=== PATIENT | female | born 1935 | race Caucasian/White ===

== ENCOUNTER 2022-12-31 19:31 | Inpatient (IN) ==
[2022-12-31] MEDS ORDERED: Magnesium Sulfate 2 gm BAG 2 GM/50 ML BAG IVPB ONE (20:06)
[2022-12-31] MEDS ORDERED: Potassium Chlor 20 meq TAB.ER PO ONE (20:07)
[2022-12-31] MEDS ORDERED: Heparin DRIP 25,000 UNITS BAG 25,000 UNITS/500 ML BAG IV SCH (20:15)
[2022-12-31 20:17] LABS: ABS Basophils 0.1 10^3/uL (0.0-0.1); ABS Eosinophils 0.1 10^3/uL (0.0-0.5); ABS Lymphocytes 2.7 10^3/uL (1.0-4.8); ABS Monocytes 0.5 10^3/uL (0.0-0.9); ABS Neutrophils 3.6 10^3/uL (1.5-7.6); ABS Nucleated RBC 0.01 10^3/ul; Hematocrit 38.8 % (35-45); Hemoglobin 13.2 g/dL (11.5-14.3); Lymphocyte % 38.1 %; Mean Corpuscular Hemoglobin 28.3 pg (27-33); Mean Corpuscular Hgb Conc 33.9 g/dL (31-36); Mean Corpuscular Volume 83.5 fL (80-97); Mean Platelet Volume 8.1 fL (7.5-11.2); Nucleated Red Blood Cells % 0.1 /100 WBC (0.0-0.4); Platelet Count 251 10^3/uL (150-450); Red Blood Count 4.65 10^6/uL (3.63-4.92); Red Cell Distribution Width 14.7 % (12-17)
[2022-12-31] MEDS ORDERED: Heparin DRIP 25,000 UNITS BAG 25,000 UNITS/500 ML BAG ONE (20:18)
[2022-12-31 20:26] LABS: INR 1.15 (0.88-1.18)
[2022-12-31 20:55] LABS: Albumin 3.7 g/dL (3.2-5.2); Calcium 8.3 mg/dL (8.6-10.3); Magnesium 1.7 mg/dL (1.9-2.7); Potassium 3.6 mmol/L (3.5-5.0); Total Bilirubin 0.7 mg/dL (0.2-1.0)
[2022-12-31 21:01] LABS: Albumin/Globulin Ratio 1.7 (1-3); CRP High Sensitivity 2.27 mg/L (<2.00); Creatinine, Serum 0.81 mg/dL (0.51-0.95); Globulin 2.2 g/dL (2-4); Total Protein 5.9 g/dL (6.4-8.9); eGFR CKD-EPI 69.3 (>60)
[2022-12-31] MEDS: Acetaminophen IV 1 GM/100ML 1,000 MG/100 ML BAG IV PRN (21:09)
[2022-12-31 21:20] LABS: Activated Partial Thrombo Time 283.7 seconds (26.0-38.0)
[2022-12-31 21:28] LABS: Erythrocyte Sed Rate 6 mm/Hr (0-29)
[2022-12-31 21:49] LABS: High Sensitivity Troponin 1 Hr 131 pg/mL (<15)
[2022-12-31] MEDS: Ondansetron 4 mg VIAL 2 MG/ML 2 ml VIAL IV PRN (21:50)
[2022-12-31 22:11] LABS: Creatinine, Serum 0.78 mg/dL (0.51-0.95); eGFR CKD-EPI 72.6 (>60)
[2023-01-01 00:27] LABS: Free T4 1.23 ng/dL (0.61-1.12); TSH Ultra Thyroid Stim Horm 2.77 mcIU/mL (0.34-5.60)
[2023-01-01 04:50] LABS: Albumin 3.3 g/dL (3.2-5.2); Albumin/Globulin Ratio 1.7 (1-3); Calcium 8.7 mg/dL (8.6-10.3); Creatinine, Serum 0.79 mg/dL (0.51-0.95); Globulin 1.9 g/dL (2-4); HDL Cholesterol 51.1 mg/dL; Magnesium 2.1 mg/dL (1.9-2.7); Potassium 4.9 mmol/L (3.5-5.0); Total Bilirubin 0.5 mg/dL (0.2-1.0); Total Protein 5.2 g/dL (6.4-8.9); eGFR CKD-EPI 71.5 (>60)
[2023-01-01 08:21] LABS: Activated Partial Thrombo Time 28.5 seconds (26.0-38.0); INR 1.03 (0.88-1.18)
[2023-01-01] MEDS ORDERED: Midazolam 10 mg/10 ml VIAL 1 mg/ml 10 ml VIAL (10 mg) IV SLOW PU ONE (12:29)
[2023-01-01] MEDS ORDERED: fentaNYL 100 mcg/2 ml 50 MCG/ML VIAL IV SLOW PU ONE (12:29)
[2023-01-01] MEDS ORDERED: ceFAZolin 2 GM PREMIX 2 GM/50 ML BAG IVPB ONE (13:00)
[2023-01-02] MEDS ORDERED: NS 0.9% 1000 ml BAG 1,000 ML IV SCH (02:00)
[2023-01-02 04:31] LABS: ABS Basophils 0.1 10^3/uL (0.0-0.1); ABS Eosinophils 0.3 10^3/uL (0.0-0.5); ABS Lymphocytes 1.9 10^3/uL (1.0-4.8); ABS Monocytes 0.5 10^3/uL (0.0-0.9); ABS Neutrophils 3.8 10^3/uL (1.5-7.6); Eosinophil % 3.9 %; Hematocrit 33.5 % (35-45); Hemoglobin 11.4 g/dL (11.5-14.3); Lymphocyte % 28.6 %; Mean Corpuscular Hemoglobin 28.2 pg (27-33); Mean Corpuscular Hgb Conc 34.1 g/dL (31-36); Mean Corpuscular Volume 82.7 fL (80-97); Platelet Count 220 10^3/uL (150-450); Red Blood Count 4.04 10^6/uL (3.63-4.92); Red Cell Distribution Width 15.1 % (12-17); White Blood Count 6.5 10^3/uL (3.8-11.8)
[2023-01-02 05:08] LABS: Albumin 3.3 g/dL (3.2-5.2); Albumin/Globulin Ratio 1.7 (1-3); Calcium 8.8 mg/dL (8.6-10.3); Creatinine, Serum 0.84 mg/dL (0.51-0.95); Globulin 1.9 g/dL (2-4); Potassium 4.7 mmol/L (3.5-5.0); Total Bilirubin 0.5 mg/dL (0.2-1.0); Total Protein 5.2 g/dL (6.4-8.9); eGFR CKD-EPI 66.4 (>60)
[2023-01-02] MEDS ORDERED: fentaNYL 100 mcg/2 ml 50 MCG/ML VIAL ONE (06:43)
[2023-01-02] MEDS ORDERED: Lidocaine 1% VIAL 10 MG/ML VIAL 30 ML ONE (06:43)
[2023-01-02] MEDS ORDERED: Midazolam 5 mg/5 ml VIAL 1 mg/ml 5 ml VIAL (5 mg) ONE (06:43)
[2023-01-02] MEDS ORDERED: Iohexol 300 (CONTRAST) 10 ML SDV ONE (06:44)
[2023-01-02] MEDS ORDERED: Flumazenil 0.5 mg/5 ml 0.1 MG/ML 5 ml VIAL ONE (07:19)
[2023-01-02] MEDS ORDERED: Metoprolol Tartrate 5 mg VIAL 5 ml VIAL (1 mg/ml) ONE ×2 (07:45→07:48)
[2023-01-02] MEDS ORDERED: hydrALAZINE 20 mg/ml 1 ML Vial IV ONE (07:48)
[2023-01-02] MEDS ORDERED: fentaNYL 100 mcg/2 ml 50 MCG/ML VIAL IV SLOW PU ONE (09:00)
[2023-01-02] MEDS ORDERED: Midazolam 10 mg/10 ml VIAL 1 mg/ml 10 ml VIAL (10 mg) IV SLOW PU ONE (09:00)
[2023-01-02] MEDS ORDERED: ceFAZolin 2 GM PREMIX 2 GM/50 ML BAG IVPB ONE (09:00)
[2023-01-02] MEDS ORDERED: Enalaprilat IV 1.25 mg/ml 1 ml VIAL (1.25 MG) IV ONE (09:41)
[2023-01-02] MEDS: Acetaminophen IV 1 GM/100ML 1,000 MG/100 ML BAG IV PRN (09:55)
[2023-01-02] MEDS ORDERED: oxyCODONE/Acetamin 5/325 mg TAB PO PRN (10:02)
[2023-01-02] MEDS ORDERED: MORPHINE IV ONE (10:06)
[2023-01-02] MEDS ORDERED: niCARdipine 0.1MG/ML IVPREMIX 20 MG/200 ML BAG IV ONE (10:47)
[2023-01-02] MEDS ORDERED: niCARdipine 0.1MG/ML IVPREMIX 20 MG/200 ML BAG IV SCH ×2 (11:00→16:00)
[2023-01-02] MEDS: Ondansetron 4 mg VIAL 2 MG/ML 2 ml VIAL IV PRN (11:19)
[2023-01-02] MEDS: Metoprolol Tartrate 5 mg VIAL 5 ml VIAL (1 mg/ml) IV PRN (15:39)
[2023-01-02 15:55] LABS: ABS Monocytes 0.5 10^3/uL (0.0-0.9); ABS Neutrophils 8.4 10^3/uL (1.5-7.6); Eosinophil % 0.2 %; Hematocrit 35.5 % (35-45); Lymphocyte % 9.7 %; Mean Corpuscular Hemoglobin 27.8 pg (27-33); Mean Corpuscular Hgb Conc 33.9 g/dL (31-36); Mean Corpuscular Volume 82.1 fL (80-97); Mean Platelet Volume 7.6 fL (7.5-11.2); Platelet Count 233 10^3/uL (150-450); Red Blood Count 4.32 10^6/uL (3.63-4.92); Red Cell Distribution Width 14.7 % (12-17); White Blood Count 9.9 10^3/uL (3.8-11.8)
[2023-01-02] MEDS ORDERED: Metoclopramide 5 MG/ML VIAL (10 mg) IV SLOW PU PRN (16:00)
[2023-01-02] MEDS ORDERED: Iodixanol (CONTRAST) 320 MG/ML 100 ML SDV IV ONE (18:09)
[2023-01-02] MEDS: ceFAZolin VIAL 1 GM in NS 0.9% 50 ML 50 ML IVPB SCH (18:17)
[2023-01-03] MEDS: Metoprolol Tartrate 5 mg VIAL 5 ml VIAL (1 mg/ml) IV PRN ×2 (00:52→06:11)
[2023-01-03] MEDS: ceFAZolin VIAL 1 GM in NS 0.9% 50 ML 50 ML IVPB SCH ×2 (02:03→09:13)
[2023-01-03 04:55] LABS: ABS Eosinophils 0.1 10^3/uL (0.0-0.5); ABS Monocytes 0.6 10^3/uL (0.0-0.9); ABS Neutrophils 5.3 10^3/uL (1.5-7.6); ABS Nucleated RBC 0.01 10^3/ul; Eosinophil % 2.1 %; Hematocrit 34.3 % (35-45); Hemoglobin 11.7 g/dL (11.5-14.3); Lymphocyte % 14.1 %; Mean Corpuscular Hemoglobin 27.8 pg (27-33); Mean Corpuscular Hgb Conc 34.1 g/dL (31-36); Mean Corpuscular Volume 81.6 fL (80-97); Mean Platelet Volume 7.7 fL (7.5-11.2); Nucleated Red Blood Cells % 0.1 /100 WBC (0.0-0.4); Platelet Count 208 10^3/uL (150-450); Red Cell Distribution Width 14.6 % (12-17); White Blood Count 7.1 10^3/uL (3.8-11.8)
[2023-01-03 05:23] LABS: Calcium 8.9 mg/dL (8.6-10.3); Creatinine, Serum 0.67 mg/dL (0.51-0.95); Magnesium 1.7 mg/dL (1.9-2.7); Phosphorus 3.3 mg/dL (2.5-5.0); Potassium 3.9 mmol/L (3.5-5.0); eGFR CKD-EPI 83.5 (>60)
[2023-01-03] MEDS ORDERED: hydrALAZINE 20 mg/ml 1 ML Vial IV IV SLOW PU PRN (06:48)
[2023-01-03] MEDS ORDERED: Magnesium Sulfate IV 3 GM in NS 0.9% 100 ml BAG 100 ML IVPB ONE (06:56)
[2023-01-03] MEDS: Ondansetron 4 mg VIAL 2 MG/ML 2 ml VIAL IV PRN (10:31)
[2023-01-04 04:36] LABS: ABS Basophils 0.1 10^3/uL (0.0-0.1); ABS Eosinophils 0.1 10^3/uL (0.0-0.5); ABS Lymphocytes 1.1 10^3/uL (1.0-4.8); ABS Monocytes 0.6 10^3/uL (0.0-0.9); ABS Neutrophils 4.3 10^3/uL (1.5-7.6); ABS Nucleated RBC 0.01 10^3/ul; Hematocrit 33.4 % (35-45); Hemoglobin 11.6 g/dL (11.5-14.3); Lymphocyte % 18.1 %; Mean Corpuscular Hemoglobin 28.5 pg (27-33); Mean Corpuscular Hgb Conc 34.8 g/dL (31-36); Mean Corpuscular Volume 81.9 fL (80-97); Mean Platelet Volume 7.4 fL (7.5-11.2); Nucleated Red Blood Cells % 0.1 /100 WBC (0.0-0.4); Platelet Count 188 10^3/uL (150-450); Red Blood Count 4.08 10^6/uL (3.63-4.92); Red Cell Distribution Width 14.5 % (12-17); White Blood Count 6.3 10^3/uL (3.8-11.8)
[2023-01-04 05:17] LABS: Calcium 8.9 mg/dL (8.6-10.3); Creatinine, Serum 0.67 mg/dL (0.51-0.95); Phosphorus 2.8 mg/dL (2.5-5.0); Potassium 3.9 mmol/L (3.5-5.0); eGFR CKD-EPI 83.5 (>60)
[2023-01-04] MEDS ORDERED: Enoxaparin 40 MG/0.4 ML SYR SUBCUT SCH (09:00)
[2023-01-04 11:05] VITALS: BP 144/60
== END 2023-01-04 11:35 | disposition home or self-care (01) | DRG 243 ==
LOC: ED 19:31 → SUATTDRO 20:37 → EDHOLD 20:37 → ICU 22:37
PROVIDERS: ADMIT Internal Medicine; ATTEND Internal Medicine Critical Care Medicine